=== PATIENT | male | born 1950 | race Caucasian/White ===

== ENCOUNTER 2022-09-27 13:30 | Inpatient (IN) | payer MEDICARE, OTHER ==
[~2022-09-27] VITALS: Ht 170.2 cm; Wt 109.9 kg
[~2022-09-27 13:30] MED LIST: ASPI1TAB20 PO; ATOR10TA PO; FURO1TAB33 PO; GLIP10TA9 PO; LISI20TA28 PO; METF-372 PO; POTA-220 PO
[2022-09-27] MEDS ORDERED: LABETALOL HCL 5 MG/ML 4ML SYRINGE IV ONE (13:45)
[2022-09-27 14:18] LABS: Basophils # (auto) 0.1 10 ^3/uL (0-0.2); Basophils % (auto) 0.6 % (0.0-2.0); Eosinophils # (auto) 0.3 10 ^3/uL (0-0.8); Eosinophils % (auto) 2.5 % (0.0-7.0); Hematocrit 43.1 % (41.0-53.0); Hemoglobin 14.8 g/dL (13.5-17.5); Lymphocytes # (auto) 1.5 10 ^3/uL (0.4-5.4); Lymphocytes % (auto) 14.8 % (10.0-50.0); Mean Corpuscular Hemoglobin 33.8 pg (28.0-32.0); Mean Corpuscular Hgb Conc. 34.3 g/dL (32.0-36.0); Mean Corpuscular Volume 98.7 fL (80.0-100.0); Monocytes % (auto) 9.4 % (0.0-12.0); Neutrophils # (auto) 7.5 10 ^3/uL (1.6-8.6); Neutrophils % (auto) 72.7 % (37.0-80.0); Nucleated Red Blood Cells % 0.3 %; Red Blood Cells 4.37 10^6/uL (4.5-5.90); Red Cell Distribution Width 12.8 % (11.8-14.3); White Blood Cell 10.3 10^3/uL (4.4-10.8)
[2022-09-27 14:40] LABS: Albumin 3.4 g/dL (3.4-5.0); Anion Gap 8 (5-15); BUN/Creatinine Ratio 16.7; Blood Urea Nitrogen 13 mg/dL (7-18); Calcium 9.4 mg/dL (8.5-10.1); Carbon Dioxide 26 mmol/L (21-32); Chloride 106 mmol/L (98-107); GFR African American 126 mL/min; GFR Non-African American 104 mL/min; Glucose 132 mg/dL (74-106); Potassium 3.4 mmol/L (3.5-5.1); Sodium 140 mmol/L (136-145)
[2022-09-27 14:43] LABS: Alanine Aminotransferase 18 U/L (16-61); Alkaline Phosphatase 84 U/L (45-117); Aspartate Aminotransferase 18 U/L (15-37); Bilirubin, Total 0.8 mg/dL (0.2-1.0); Total Protein 7.6 g/dL (6.4-8.2)
[2022-09-27] MEDS ORDERED: ASPirin 325 MG TAB PO ONE (15:00)
[2022-09-27] MEDS ORDERED: DEXTROSE (50%) 50ML SYRG IV PRN (15:15)
[2022-09-27] MEDS ORDERED: SODIUM CHLORIDE 0.9% 1,000 ML IV SCH (15:15)
[2022-09-27] MEDS ORDERED: NITROGLYCERIN 0.4 MG SL TAB SL PRN (15:15)
[2022-09-27] MEDS ORDERED: hydrALAZINE HCL 20 MG/ML VL IV PRN (15:15)
[2022-09-27] MEDS ORDERED: ACETAMINOPHEN 325 MG TAB PO PRN (15:15)
[2022-09-27] MEDS ORDERED: MORPHINE SULFATE INJ 2 MG/ml SYRG IV PRN (15:15)
[2022-09-27] MEDS ORDERED: PANTOPRAZOLE 40 MG/10 ML VIAL INJ IV ONE (15:30)
[2022-09-27] MEDS ORDERED: POTASSIUM EFFERVESENT TAB 25 MEQ PO ONE (15:30)
[2022-09-27] MEDS: InsuLIN REG 1unit/0.01ml Soln (100units/ml) SC SCH (17:00)
[2022-09-27] MEDS: ACCU-CHEK COMFORT CURVE STRIP VI SCH ×2 (17:00→22:00)
[2022-09-27 20:17] LABS: Cholesterol 143 mg/dL (< 200)
[2022-09-27 20:22] LABS: HDL Cholesterol 52 mg/dL (40-59); LDL Cholesterol 82 mg/dL (< 100); Triglycerides 81 mg/dL (< 150)
[2022-09-28] MEDS: ATORVASTATIN 20 MG TAB PO SCH ×2 (00:25→18:48)
[2022-09-28] MEDS: InsuLIN REG 1unit/0.01ml Soln (100units/ml) SC SCH ×5 (00:37→21:35)
[2022-09-28] MEDS: ACCU-CHEK COMFORT CURVE STRIP VI SCH ×4 (06:50→21:34)
[2022-09-28 07:43] LABS: Basophils # (auto) 0.1 10 ^3/uL (0-0.2); Basophils % (auto) 0.5 % (0.0-2.0); Eosinophils # (auto) 0.2 10 ^3/uL (0-0.8); Eosinophils % (auto) 2.3 % (0.0-7.0); Hematocrit 45.1 % (41.0-53.0); Hemoglobin 15.2 g/dL (13.5-17.5); Lymphocytes # (auto) 1.8 10 ^3/uL (0.4-5.4); Lymphocytes % (auto) 17.4 % (10.0-50.0); Mean Corpuscular Hemoglobin 33.1 pg (28.0-32.0); Mean Corpuscular Hgb Conc. 33.7 g/dL (32.0-36.0); Mean Corpuscular Volume 98.3 fL (80.0-100.0); Monocytes # (auto) 1.3 10 ^3/uL (0-1.3); Monocytes % (auto) 12.7 % (0.0-12.0); Neutrophils # (auto) 6.8 10 ^3/uL (1.6-8.6); Neutrophils % (auto) 67.1 % (37.0-80.0); Red Blood Cells 4.59 10^6/uL (4.5-5.90); Red Cell Distribution Width 12.8 % (11.8-14.3); White Blood Cell 10.2 10^3/uL (4.4-10.8)
[2022-09-28 08:04] LABS: Albumin 3.7 g/dL (3.4-5.0); Calcium 9.9 mg/dL (8.5-10.1); Potassium 3.7 mmol/L (3.5-5.1)
[2022-09-28 08:16] LABS: BUN/Creatinine Ratio 23.5; Bilirubin, Total 0.7 mg/dL (0.2-1.0); Total Protein 7.3 g/dL (6.4-8.2)
[2022-09-28] MEDS ORDERED: ENOXAPARIN SOD 40 MG/0.4 ML SYRINGE SC SCH (10:00)
[2022-09-28] MEDS ORDERED: ASPirin-EC 81 mg tab PO SCH (10:00)
[2022-09-28] MEDS ORDERED: LISINOPRIL 20 MG TAB PO SCH (10:00)
[2022-09-28] MEDS: FUROSEMIDE 20 MG TAB PO SCH (12:42)
[2022-09-28] MEDS: ASPirin 81 mg TAB PO SCH (12:43)
[2022-09-28] MEDS: POTASSIUM CHL 20 Meq TABLET PO SCH (12:44)
[2022-09-28] MEDS: PANTOPRAZOLE 40 MG/10 ML VIAL INJ IV SCH (12:57)
[2022-09-28] MEDS ORDERED: LISINOPRIL 20 MG TAB PO ONE (13:15)
[2022-09-28] MEDS ORDERED: hydrALAZINE HCL 20 MG/ML VL IV PRN (13:15)
[2022-09-28] MEDS ORDERED: ACETAMINOPHEN 325 MG TAB PO PRN (17:00)
[2022-09-28] MEDS ORDERED: ONDANSETRON HCL 4 MG/2 ML VIAL IV PRN (17:00)
[2022-09-28 18:00] VITALS: BP 139/82
[2022-09-28] MEDS: metFORMIN HYDROCHLORIDE 500 MG TAB PO SCH (18:48)
[2022-09-28] MEDS: APIXABAN 5 MG TAB PO SCH (21:33)
[2022-09-28 22:00] VITALS: BP 149/74
[2022-09-28] MEDS ORDERED: INDOMETHACIN 25 MG CAP PO ONE (23:45)
[2022-09-29 05:00] VITALS: BP 138/72
[2022-09-29] MEDS: ACCU-CHEK COMFORT CURVE STRIP VI SCH ×4 (06:26→21:22)
[2022-09-29] MEDS: InsuLIN REG 1unit/0.01ml Soln (100units/ml) SC SCH ×4 (06:26→21:22)
[2022-09-29 07:29] LABS: BUN/Creatinine Ratio 24.7; Potassium 3.8 mmol/L (3.5-5.1)
[2022-09-29 09:02] VITALS: BP 128/57
[2022-09-29] MEDS: metFORMIN HYDROCHLORIDE 500 MG TAB PO SCH ×2 (10:00→18:00)
[2022-09-29] MEDS: FUROSEMIDE 20 MG TAB PO SCH (10:01)
[2022-09-29] MEDS: ASPirin 81 mg TAB PO SCH (10:01)
[2022-09-29] MEDS: APIXABAN 5 MG TAB PO SCH ×2 (10:01→21:18)
[2022-09-29] MEDS: POTASSIUM CHL 20 Meq TABLET PO SCH (10:02)
[2022-09-29] MEDS: PANTOPRAZOLE 40 MG/10 ML VIAL INJ IV SCH (10:02)
[2022-09-29] MEDS: LISINOPRIL 20 MG TAB PO SCH (10:02)
[2022-09-29] MEDS: INDOMETHACIN 25 MG CAP PO SCH (11:46)
[2022-09-29 13:00] VITALS: BP 157/74
[2022-09-29] MEDS ORDERED: LORazepam 2MG/ML-1ML VIAL IV ONE (16:45)
[2022-09-29 16:57] VITALS: BP 139/70
[2022-09-29] MEDS: ATORVASTATIN 20 MG TAB PO SCH (18:01)
[2022-09-29 22:00] VITALS: BP 145/69
[2022-09-30 06:05] VITALS: BP 130/76
[2022-09-30] MEDS: ACCU-CHEK COMFORT CURVE STRIP VI SCH ×2 (06:05→11:30)
[2022-09-30] MEDS: InsuLIN REG 1unit/0.01ml Soln (100units/ml) SC SCH ×2 (06:05→11:30)
[2022-09-30 09:00] VITALS: BP 157/76
[2022-09-30] MEDS: metFORMIN HYDROCHLORIDE 500 MG TAB PO SCH (09:19)
[2022-09-30] MEDS: INDOMETHACIN 25 MG CAP PO SCH (09:19)
[2022-09-30] MEDS: ASPirin 81 mg TAB PO SCH (09:20)
[2022-09-30] MEDS: LISINOPRIL 20 MG TAB PO SCH (09:20)
[2022-09-30] MEDS: POTASSIUM CHL 20 Meq TABLET PO SCH (09:20)
[2022-09-30] MEDS: FUROSEMIDE 20 MG TAB PO SCH (09:21)
[2022-09-30] MEDS: APIXABAN 5 MG TAB PO SCH (09:21)
[2022-09-30] MEDS: PANTOPRAZOLE 40 MG/10 ML VIAL INJ IV SCH (09:21)
[2022-09-30] MEDS ORDERED: FURO1TAB33 PO (11:12)
[2022-09-30] MEDS ORDERED: ATOR20TA PO (11:12)
[2022-09-30] MEDS ORDERED: LISI40TA11 PO (11:12)
[2022-09-30] MEDS ORDERED: METF-929 PO (11:12)
[2022-09-30] MEDS ORDERED: POTA10TA32 PO (11:12)
[2022-09-30] MEDS ORDERED: GLIP10TA9 PO (11:12)
[2022-09-30] MEDS ORDERED: ASPI-325 PO (11:12)
[2022-09-30] MEDS ORDERED: RIVA20TA PO (11:12)
[2022-09-30 12:01] VITALS: BP 157/76
[2022-09-30 13:00] VITALS: BP 142/57
== END 2022-09-30 14:50 | disposition home or self-care (01) | DRG 281 ==
LOC: ER 13:30 → EDBD 13:30 → TELE 15:16 → TELE-EAST 09-28 18:12
PROVIDERS: ADMIT Nurse Practitioner Family; ATTEND Internal Medicine Geriatric Medicine
DX: I21.4 Non-ST elevation (NSTEMI) myocardial infarction (principal); I16.1 Hypertensive emergency; I50.32 Chronic diastolic (congestive) heart failure; E66.01 Morbid (severe) obesity due to excess calories; I11.0 Hypertensive heart disease with heart failure; I48.91 Unspecified atrial fibrillation; E78.5 Hyperlipidemia, unspecified; E11.9 Type 2 diabetes mellitus without complications; Z20.822 Contact with and (suspected) exposure to COVID-19; I65.22 Occlusion and stenosis of left carotid artery; M19.90 Unspecified osteoarthritis, unspecified site; Z88.0 Allergy status to penicillin; Z88.1 Allergy status to other antibiotic agents; Z79.01 Long term (current) use of anticoagulants; Z79.82 Long term (current) use of aspirin; Z79.899 Other long term (current) drug therapy; Z82.49 Family history of ischemic heart disease and other diseases of the circulatory system; Z83.3 Family history of diabetes mellitus; Z86.73 Personal history of transient ischemic attack (TIA), and cerebral infarction without residual deficits; Z68.37 Body mass index [BMI] 37.0-37.9, adult; Z79.84 Long term (current) use of oral hypoglycemic drugs
CPT/HCPCS: 36415; 70450; 70547; 70551; 71045; 80048; 80053; 80061; 82962; 83036; 83880; 84443; 84484; 85025; 87426; 93005; 93306; 93886; 99291; C9113; G0378; J1815

== ENCOUNTER 2023-02-07 10:39 | Emergency (ER) | payer MEDICARE, OTHER ==
[~2023-02-07] VITALS: Ht 170.2 cm; Wt 113.2 kg
[~2023-02-07 10:39] MED LIST changes: +ASPI-325 PO; +ATOR20TA PO; -LISI20TA28 PO; +LISI20TA56 PO; +LISI40TA16 PO; +METF-929 PO; +POTA-228 PO; +RIVA20TA PO
[2023-02-07 11:50] LABS: Basophils # (auto) 0.1 10 ^3/uL (0-0.2); Basophils % (auto) 0.5 % (0.0-2.0); Eosinophils # (auto) 0.1 10 ^3/uL (0-0.8); Eosinophils % (auto) 0.4 % (0.0-7.0); Hematocrit 42.5 % (41.0-53.0); Hemoglobin 14.7 g/dL (13.5-17.5); Lymphocytes # (auto) 1.6 10 ^3/uL (0.4-5.4); Lymphocytes % (auto) 10.9 % (10.0-50.0); Mean Corpuscular Hemoglobin 34.3 pg (28.0-32.0); Mean Corpuscular Hgb Conc. 34.5 g/dL (32.0-36.0); Mean Corpuscular Volume 99.3 fL (80.0-100.0); Monocytes # (auto) 1.7 10 ^3/uL (0-1.3); Monocytes % (auto) 11.6 % (0.0-12.0); Neutrophils % (auto) 76.6 % (37.0-80.0); Red Blood Cells 4.27 10^6/uL (4.5-5.90); Red Cell Distribution Width 12.6 % (11.8-14.3); White Blood Cell 14.4 10^3/uL (4.4-10.8)
[2023-02-07 12:19] LABS: Albumin 3.1 g/dL (3.4-5.0); BUN/Creatinine Ratio 14.6 (10.0-20.0); Calcium 9.2 mg/dL (8.5-10.1); Potassium 3.9 mmol/L (3.5-5.1)
[2023-02-07 12:22] LABS: Bilirubin, Total 0.7 mg/dL (0.2-1.0); Total Protein 7.6 g/dL (6.4-8.2)
[2023-02-07 12:32] LABS: INR 1.02 (0.9-1.15); Partial Thromboplastin Time 27.9 sec (24.6-33.4)
[2023-02-07] MEDS ORDERED: IOHEXOL 300 MG/ML 100ML BOTTLE IJ ONE (13:39)
[2023-02-07] MEDS ORDERED: ONDANSETRON HCL 4 MG/2 ML VIAL IV ONE (15:15)
[2023-02-07] MEDS ORDERED: CLINDAMYCIN 600MG IV 50 ML IV ONE (15:15)
[2023-02-07] MEDS: MORPHINE SULFATE 4 MG/ML SYR/VIAL IV ONE ×2 (15:31→15:37)
[2023-02-07] MEDS ORDERED: VANCOMYCIN 1GM/250ML 250 ML IV ONE (16:15)
[2023-02-07 18:59] VITALS: BP 132/76
== END 2023-02-07 19:28 | disposition short-term general hospital (02) ==
LOC: ER 10:39
DX: K12.2 Cellulitis and abscess of mouth (principal); D72.829 Elevated white blood cell count, unspecified; I11.0 Hypertensive heart disease with heart failure; I50.9 Heart failure, unspecified; E11.9 Type 2 diabetes mellitus without complications; Z90.49 Acquired absence of other specified parts of digestive tract; Z88.0 Allergy status to penicillin
CPT/HCPCS: 36415; 70487; 80053; 85025; 85610; 85730; 96365; 96375; 99285; J2270; J2405; J3370; Q9967

== ENCOUNTER 2023-11-29 19:20 | Inpatient (IN) | payer MEDICARE, OTHER ==
[~2023-11-29] VITALS: Ht 172.7 cm; Wt 108.4 kg
[2023-11-29 20:00] VITALS: PULSE 80; RESP 22; O2SAT 96
[2023-11-29 20:00] LABS: Basophils # (auto) 0 10 ^3/uL (0-0.2); Basophils % (auto) 0.4 % (0.0-2.0); Eosinophils # (auto) 0.1 10 ^3/uL (0-0.8); Eosinophils % (auto) 0.8 % (0.0-7.0); Hematocrit 41.7 % (41.0-53.0); Hemoglobin 14.1 g/dL (13.5-17.5); Lymphocytes # (auto) 1.4 10 ^3/uL (0.4-5.4); Lymphocytes % (auto) 14.6 % (10.0-50.0); Mean Corpuscular Hemoglobin 32.3 pg (28.0-32.0); Mean Corpuscular Hgb Conc. 33.9 g/dL (32.0-36.0); Mean Corpuscular Volume 95.3 fL (80.0-100.0); Neutrophils # (auto) 7.2 10 ^3/uL (1.6-8.6); Neutrophils % (auto) 74.2 % (37.0-80.0); Nucleated Red Blood Cells % 0.2 %; Red Blood Cells 4.38 10^6/uL (4.5-5.90); Red Cell Distribution Width 14.5 % (11.8-14.3); White Blood Cell 9.8 10^3/uL (4.4-10.8)
[2023-11-29 20:06] LABS: Chloride 108 mmol/L (98-107); Potassium 3.7 mmol/L (3.5-5.1); Sodium 141 mmol/L (136-145)
[2023-11-29 20:07] LABS: Anion Gap 12 (5-15); Calcium 9.3 mg/dL (8.5-10.1); Carbon Dioxide 21 mmol/L (20-30)
[2023-11-29 20:12] LABS: BUN/Creatinine Ratio 9.5 (10.0-20.0); Blood Alcohol 107.8 mg/dL (<10); Blood Urea Nitrogen 9 mg/dL (9-23); Glucose 123 mg/dL (74-106)
[2023-11-29 20:33] LABS: Acetaminophen < 2.0 UG/ML (10.0-20.0)
[2023-11-29 20:34] LABS: Salicylate < 3.0 mg/dL (2.8-20.0)
[2023-11-29] MEDS ORDERED: DEXTROSE (50%) 50ML SYRG IV PRN (21:30)
[2023-11-29] MEDS ORDERED: DOCUSATE SOD 100 MG CAP PO PRN (21:30)
[2023-11-29] MEDS ORDERED: ONDANSETRON HCL 4 MG/2 ML VIAL IV PRN (21:30)
[2023-11-29] MEDS ORDERED: ACETAMINOPHEN 325 MG TAB PO PRN (21:30)
[2023-11-29] MEDS ORDERED: hydrALAZINE HCL 20 MG/ML VL IV PRN (21:30)
[2023-11-29] MEDS: SODIUM CHLOR 0.9% PF (SALINE LOCK) 10ML VIAL/SYR IV SCH (22:00)
[2023-11-29] MEDS: InsuLIN REG 1unit/0.01ml Soln (100units/ml) SC SCH (22:00)
[2023-11-29] MEDS: ACCU-CHEK COMFORT CURVE STRIP VI SCH (22:00)
[2023-11-29 22:39] LABS: Amphetamine Screen, Urine Neg (NEGATIVE); Barbiturate Scree,Urine Neg (NEGATIVE); Benzodiazephine Screen, Urine Neg (NEGATIVE); Cannabinoid Screen, Urine Neg (NEGATIVE); Cocaine Screen, Urine Neg (NEGATIVE); Opiate Scree,Urine Neg (NEGATIVE); Phencyclidine Screen, Urine Neg (NEGATIVE)
[2023-11-29] MEDS: ATORVASTATIN 20 MG TAB PO SCH (22:57)
[2023-11-29] MEDS ORDERED: MORPHINE SULFATE INJ 2 MG/ml SYRG IV PRN (23:00)
[2023-11-29] MEDS ORDERED: NITROGLYCERIN 0.4 MG SL TAB SL PRN (23:00)
[2023-11-30] MEDS: HYDROcodone-ACET 5/325MG TAB PO PRN (02:26)
[2023-11-30 05:17] LABS: Basophils # (auto) 0 10 ^3/uL (0-0.2); Basophils % (auto) 0.4 % (0.0-2.0); Eosinophils # (auto) 0.1 10 ^3/uL (0-0.8); Eosinophils % (auto) 1.3 % (0.0-7.0); Hematocrit 38.7 % (41.0-53.0); Hemoglobin 12.8 g/dL (13.5-17.5); Lymphocytes # (auto) 1.3 10 ^3/uL (0.4-5.4); Mean Corpuscular Hemoglobin 32.3 pg (28.0-32.0); Mean Corpuscular Hgb Conc. 33.1 g/dL (32.0-36.0); Mean Corpuscular Volume 97.6 fL (80.0-100.0); Monocytes # (auto) 1.3 10 ^3/uL (0-1.3); Monocytes % (auto) 13.2 % (0.0-12.0); Neutrophils # (auto) 6.7 10 ^3/uL (1.6-8.6); Neutrophils % (auto) 71.1 % (37.0-80.0); Red Blood Cells 3.97 10^6/uL (4.5-5.90); Red Cell Distribution Width 14.9 % (11.8-14.3); White Blood Cell 9.5 10^3/uL (4.4-10.8)
[2023-11-30 05:41] LABS: Alanine Aminotransferase 13 U/L (7-40); Albumin 3.9 g/dL (3.2-4.8); Alkaline Phosphatase 88 U/L (46-116); Anion Gap 8 (5-15); Aspartate Aminotransferase 18 U/L (13-40); Blood Urea Nitrogen 10 mg/dL (9-23); Calcium 9.3 mg/dL (8.7-10.4); Carbon Dioxide 25 mmol/L (20-30); Chloride 107 mmol/L (98-107); Glucose 101 mg/dL (74-106); Potassium 3.8 mmol/L (3.5-5.1); Sodium 140 mmol/L (136-145)
[2023-11-30 05:42] LABS: Bilirubin, Total 0.8 mg/dL (0.2-1.0); Total Protein 6.3 g/dL (5.7-8.2)
[2023-11-30 07:45] VITALS: PULSE 78; RESP 15; O2SAT 100
[2023-11-30] MEDS ORDERED: ATORVASTATIN 20 MG TAB PO SCH (10:00)
[2023-11-30] MEDS ORDERED: FUROSEMIDE 20 MG/2 ML VIAL IV SCH (10:00)
[2023-11-30] MEDS: RIVAROXABAN 20 MG TAB PO SCH (10:35)
[2023-11-30] MEDS: ASPirin 81 mg TAB PO SCH (10:35)
[2023-11-30] MEDS: LISINOPRIL 20 MG TAB PO SCH (10:36)
[2023-11-30] MEDS: FUROSEMIDE 20 MG TAB PO ONE (10:52)
[2023-11-30] MEDS ORDERED: LISINOPRIL 20 MG TAB PO SCH (12:00)
[2023-11-30 12:49] LABS: Magnesium 1.9 mg/dL (1.6-2.6)
[2023-11-30] MEDS: amLODIPine BESYLATE 5 MG TAB PO ONE (15:28)
[2023-11-30] MEDS ORDERED: LORazepam 2MG/ML-1ML VIAL IV PRN (19:30)
[2023-11-30 19:40] VITALS: PULSE 99; RESP 15; O2SAT 95
[2023-11-30] MEDS: ATORVASTATIN 20 MG TAB PO SCH (22:35)
[2023-11-30 23:34] VITALS: BP 130/55; PULSE 68; RESP 19; TEMP 97; O2SAT 95
[2023-12-01] VITALS (8 sets, daily range): BP systolic 99–130; BP diastolic 42–67; PULSE 54–89; RESP 14–19; TEMP 97.4–98.2; O2SAT 92–95
[2023-12-01 05:30] LABS: Basophils # (auto) 0.1 10 ^3/uL (0-0.2); Basophils % (auto) 0.7 % (0.0-2.0); Eosinophils # (auto) 0.2 10 ^3/uL (0-0.8); Eosinophils % (auto) 2.7 % (0.0-7.0); Hematocrit 37.4 % (41.0-53.0); Hemoglobin 12.3 g/dL (13.5-17.5); Lymphocytes % (auto) 24.3 % (10.0-50.0); Mean Corpuscular Hemoglobin 31.8 pg (28.0-32.0); Mean Corpuscular Hgb Conc. 32.8 g/dL (32.0-36.0); Mean Corpuscular Volume 96.9 fL (80.0-100.0); Monocytes # (auto) 1.2 10 ^3/uL (0-1.3); Monocytes % (auto) 14.2 % (0.0-12.0); Neutrophils # (auto) 4.8 10 ^3/uL (1.6-8.6); Neutrophils % (auto) 58.1 % (37.0-80.0); Nucleated Red Blood Cells % 0.2 %; Red Blood Cells 3.86 10^6/uL (4.5-5.90); Red Cell Distribution Width 14.8 % (11.8-14.3); White Blood Cell 8.2 10^3/uL (4.4-10.8)
[2023-12-01 05:44] LABS: Chloride 106 mmol/L (98-107); Potassium 3.7 mmol/L (3.5-5.1); Sodium 138 mmol/L (136-145)
[2023-12-01 05:45] LABS: Anion Gap 7 (5-15); Calcium 9.2 mg/dL (8.7-10.4); Carbon Dioxide 25 mmol/L (20-30)
[2023-12-01 05:50] LABS: BUN/Creatinine Ratio 15.8 (10.0-20.0); Blood Urea Nitrogen 16 mg/dL (9-23); Glucose 114 mg/dL (74-106)
[2023-12-01] MEDS: amLODIPine BESYLATE 5 MG TAB PO SCH (10:00)
[2023-12-01] MEDS: LISINOPRIL 20 MG TAB PO SCH (10:00)
[2023-12-01] MEDS: FUROSEMIDE 20 MG TAB PO SCH (11:36)
[2023-12-02] VITALS (9 sets, daily range): BP systolic 109–153; BP diastolic 48–68; PULSE 56–79; RESP 16–20; TEMP 36.6; O2SAT 92–97
[2023-12-02 05:10] LABS: Basophils # (auto) 0 10 ^3/uL (0-0.2); Basophils % (auto) 0.6 % (0.0-2.0); Eosinophils # (auto) 0.2 10 ^3/uL (0-0.8); Hemoglobin 12.4 g/dL (13.5-17.5); Lymphocytes # (auto) 1.8 10 ^3/uL (0.4-5.4); Lymphocytes % (auto) 22.5 % (10.0-50.0); Mean Corpuscular Hemoglobin 32.5 pg (28.0-32.0); Mean Corpuscular Hgb Conc. 33.6 g/dL (32.0-36.0); Mean Corpuscular Volume 96.5 fL (80.0-100.0); Monocytes # (auto) 1.2 10 ^3/uL (0-1.3); Monocytes % (auto) 14.7 % (0.0-12.0); Neutrophils # (auto) 4.7 10 ^3/uL (1.6-8.6); Neutrophils % (auto) 59.2 % (37.0-80.0); Red Blood Cells 3.84 10^6/uL (4.5-5.90); White Blood Cell 7.9 10^3/uL (4.4-10.8)
[2023-12-02 05:23] LABS: INR 1.28 (0.9-1.15); Partial Thromboplastin Time 35.9 SEC (24.5-34.5); Prothrombin Time 13.2 sec (9.3-11.8)
[2023-12-02 05:24] LABS: Alanine Aminotransferase 11 U/L (7-40); Albumin 3.6 g/dL (3.2-4.8); Alkaline Phosphatase 75 U/L (46-116); Anion Gap 5 (5-15); Aspartate Aminotransferase 15 U/L (13-40); BUN/Creatinine Ratio 13.5 (10.0-20.0); Blood Urea Nitrogen 14 mg/dL (9-23); Calcium 8.9 mg/dL (8.7-10.4); Carbon Dioxide 26 mmol/L (20-30); Chloride 106 mmol/L (98-107); Glucose 107 mg/dL (74-106); Magnesium 2.1 mg/dL (1.6-2.6); Potassium 3.6 mmol/L (3.5-5.1); Sodium 137 mmol/L (136-145)
[2023-12-02 05:25] LABS: Bilirubin, Total 0.5 mg/dL (0.2-1.0); Total Protein 6.3 g/dL (5.7-8.2)
[2023-12-02] MEDS: FOLIC ACID 1 MG, MULTIPLE VITAMIN 10 ML, MAGNESIUM SULF SDV 50% 8 MEQ, THIAMINE INJ 100... INJ SCH (07:20)
[2023-12-02] MEDS: RIVAROXABAN 20 MG TAB PO SCH (10:54)
[2023-12-02 11:21] LABS: Urine Bacteria NONE SEEN /hpf (None Seen); Urine Blood 3+ /uL (Negative); Urine Clarity Clear (Clear); Urine Protein, UAD TRACE (Negative); Urine Specific Gravity 1.011 (1.001-1.035); Urine Urobilinogen Normal (Negative); Urine WBC 1 /hpf (0 - 3); Urine pH 6.5 (5.0-8.0)
[2023-12-02 11:23] LABS: Urine Color Yellow (Yellow)
[2023-12-02] MEDS ORDERED: AML5T PO (11:46)
[2023-12-03 08:00] VITALS: PULSE 57; PULSE 59; RESP 16; O2SAT 91
[2023-12-03 09:00] VITALS: BP 115/62; PULSE 57; RESP 16; TEMP 97.9; O2SAT 95
[2023-12-03 13:00] VITALS: BP 127/58; PULSE 75; RESP 17; TEMP 98.1; O2SAT 95
[2023-12-03 16:42] VITALS: BP 93/63; PULSE 74; RESP 17; TEMP 98.1; O2SAT 94
== END 2023-12-03 18:52 | DRG 280 ==
LOC: ER 19:20 → EDBD 19:20 → TELE 22:51 → TELE-CENTR 11-30 23:17
PROVIDERS: ADMIT Internal Medicine Pulmonary Disease; ATTEND Emergency Medicine
DX: I11.0 Hypertensive heart disease with heart failure (principal); I21.A1 Myocardial infarction type 2; I50.33 Acute on chronic diastolic (congestive) heart failure; I48.21 Permanent atrial fibrillation; R45.851 Suicidal ideations; E11.9 Type 2 diabetes mellitus without complications; E66.9 Obesity, unspecified; F39 Unspecified mood [affective] disorder; G89.29 Other chronic pain; F10.129 Alcohol abuse with intoxication, unspecified; Y90.9 Presence of alcohol in blood, level not specified; E78.5 Hyperlipidemia, unspecified; I25.2 Old myocardial infarction; Z79.01 Long term (current) use of anticoagulants; Z74.01 Bed confinement status; Z88.1 Allergy status to other antibiotic agents; Z88.0 Allergy status to penicillin; Z90.49 Acquired absence of other specified parts of digestive tract; Z82.49 Family history of ischemic heart disease and other diseases of the circulatory system; Z68.36 Body mass index [BMI] 36.0-36.9, adult; Z79.82 Long term (current) use of aspirin; Z91.013 Allergy to seafood
CPT/HCPCS: 36415; 71045; 80048; 80053; 80061; 80307; 80320; 80329; 81001; 82962; 83036; 83735; 83880; 84443; 84484; 85025; 85610; 85730; 93005; 93306; 97163; G0378; J1815